=== PATIENT | female | born 2000 | race Caucasian/White ===

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

== ENCOUNTER 2022-05-08 23:21 | Inpatient (IN) ==
[2022-05-08] MEDS ORDERED: Buffered Lidocaine 1% SYRIN 1 ml INTRADERM ONE (23:40)
[2022-05-08] MEDS ORDERED: Lactated Ringers 1000 ml BAG 1,000 ML IV ONE (23:40)
[2022-05-08] MEDS ORDERED: OBEPIDURAL (200 ML) 200 ML EPIDURAL ONE (23:43)
[2022-05-08] MEDS ORDERED: EPINEPHrine SULFITE FREE 1 MG/ML ONE (23:44)
[2022-05-08] MEDS ORDERED: Lidocaine 1% MPF 5 ML VIAL ONE (23:44)
[2022-05-08] MEDS ORDERED: Lactated Ringers 1000 ml BAG 1,000 ML IV SCH (23:45)
[2022-05-08 23:56] LABS: ABS Eosinophils 0.1 10^3/ul (0-0.6); ABS Lymphocytes 2.5 10^3/ul (1.0-4.8); ABS Monocytes 0.8 10^3/ul (0-0.8); ABS Neutrophils 9.5 10^3/ul (1.5-7.7); Eosinophil % 0.9 %; Hematocrit 28 % (35-47); Hemoglobin 9.7 g/dL (12.0-16.0); Lymphocyte % 19.4 %; Mean Corpuscular HGB Conc 35 g/dL (31-36); Mean Corpuscular Hemoglobin 29 pg (27-31); Mean Corpuscular Volume 84 fL (80-97); Mean Platelet Volume 7.6 fL (7.4-10.4); Platelet Count 266 10^3/uL (150-450); Red Blood Count 3.36 10^6 /uL (3.70-4.87); Red Cell Distribution Width 14 % (10-15); White Blood Count 12.9 10^3/uL (3.5-10.8)
[2022-05-09 00:19] LABS: Urine Benzodiazepine Screen None Detected (None Detect); Urine Cannabinoids Screen Presumptive Positive (None Detect); Urine Opiates Screen None Detected (None Detect)
[2022-05-09] MEDS ORDERED: Phenylephrine 40 mcg/mL 10mL (400mcg) SYRINGE IV PUSH PRN ×2 (01:02)
[2022-05-09] MEDS ORDERED: Lactated Ringers 1000 ml BAG 1,000 ML IV ONE (01:02)
[2022-05-09] MEDS ORDERED: Sodium Citrate/Citric Acid LIQ 15 ML UDC PO PRN (01:02)
[2022-05-09 01:41] LABS: Urine Appearance Clear; Urine Bilirubin Negative (Negative); Urine Blood Negative (Negative); Urine Color Straw; Urine Glucose Negative (Negative); Urine Ketones Negative (Negative); Urine Nitrite Negative (Negative); Urine Protein Negative (Negative); Urine Urobilinogen Negative (Negative)
[2022-05-09] MEDS ORDERED: Lactated Ringers 1000 ml BAG 1,000 ML IV SCH (02:00)
[2022-05-09] MEDS ORDERED: OBEPIDURAL (200 ML) 200 ML EPIDURAL SCH (02:00)
[2022-05-09] MEDS ORDERED: Oxytocin 10 UNITS/ML 1 ML VIAL IM ONE (04:55)
[2022-05-09] MEDS ORDERED: Witch Hazel PAD JAR TOPICAL PRN (04:55)
[2022-05-09] MEDS ORDERED: Glycerin ADULT 2.4 gm SUPP PR PRN (04:55)
[2022-05-09] MEDS ORDERED: Dibucaine 1% OINT 28.35 GM TUBE PR PRN (04:55)
[2022-05-09] MEDS ORDERED: Measles, Mumps,Rubella VACC 0.5 ML/VIAL SUBCUT ONE (04:58)
[2022-05-09] MEDS ORDERED: Saline NASAL SPRAY 0.65% BTL BOTH NARES PRN (07:33)
[2022-05-09] MEDS ORDERED: Fluticasone NASAL SPRAY 50MCG 16 gm SPRAY BTL BOTH NARES SCH (12:30)
[2022-05-10 06:53] LABS: ABS Basophils 0.1 10^3/ul (0-0.2); ABS Eosinophils 0.2 10^3/ul (0-0.6); ABS Monocytes 0.8 10^3/ul (0-0.8); ABS Neutrophils 5.8 10^3/ul (1.5-7.7); Hematocrit 30 % (35-47); Hemoglobin 10.3 g/dL (12.0-16.0); Lymphocyte % 30.6 %; Mean Corpuscular HGB Conc 35 g/dL (31-36); Mean Corpuscular Hemoglobin 29 pg (27-31); Mean Corpuscular Volume 84 fL (80-97); Mean Platelet Volume 7.6 fL (7.4-10.4); Platelet Count 228 10^3/uL (150-450); Red Blood Count 3.53 10^6 /uL (3.70-4.87); Red Cell Distribution Width 14 % (10-15); White Blood Count 9.9 10^3/uL (3.5-10.8)
[2022-05-10 08:59] VITALS: BP 108/66
[2022-05-10] MEDS ORDERED: Measles, Mumps,Rubella VACC 0.5 ML/VIAL SUBCUT ONE (09:09)
[2022-05-10] MEDS ORDERED: Varicella Virus Vaccine Live 0.5 ML VIAL SUBCUT ONE (10:00)
== END 2022-05-10 10:11 | disposition home or self-care (01) | DRG 560 ==
LOC: MCHOBOUT 23:21 → MCHOB 23:38
PROVIDERS: ADMIT Midwife; ATTEND Midwife